=== PATIENT | male | born 1960 | race Caucasian/White ===

== ENCOUNTER 2017-05-07 16:43 | Inpatient (IN) | payer OTHER ==
[~2017-05-07] VITALS: Ht 175.3 cm; Wt 111.1 kg
[2017-05-07 16:50] VITALS: Ht 175.3 cm; Wt 111.1 kg
[2017-05-07] MEDS ORDERED: ACETAMINOPHEN A1 TAB PO (17:08)
[2017-05-07] MEDS ORDERED: MAPAP500 MG PO (17:09)
[2017-05-07] MEDS ORDERED: NEURONTIN800 MG PO (17:09)
[2017-05-07] MEDS ORDERED: KEN025C TOP (17:11)
[2017-05-07] MEDS ORDERED: ZOSC TOP (17:12)
[2017-05-07] MEDS ORDERED: XOPENEX HF0.045 MG/1 IH (17:13)
[2017-05-07] MEDS ORDERED: DULERA1 AR2 INH (17:14)
[2017-05-07] MEDS ORDERED: GOOD SENSE OMEP20 MG PO (17:14)
[2017-05-07] MEDS ORDERED: SPIRIVA18 MC1 INH (17:15)
[2017-05-07 17:50] LABS: BASOPHIL % 0.6 % (0-2); PLATELET COUNT 194 x10^3mcL (130-400)
[2017-05-07 17:59] LABS: RED CELL DISTRIBUTION WIDTH 16.1 % (11.5-14.5)
[2017-05-07 18:04] LABS: CALCIUM 8.7 mg/dL (8.5-10.1); CARBON DIOXIDE 27.6 mmol/L (21-32); CHLORIDE SERUM 105 mmol/L (98-107); CREATININE SERUM 1.1 mg/dL (0.7-1.3); GFR1 > 60 mL/min; GLUCOSE SERUM 127 mg/dL (74-106); POTASSIUM SERUM 3.7 mmol/L (3.5-5.1); SODIUM SERUM 143 mmol/L (136-145)
[2017-05-07 18:09] LABS: ALBUMIN 3.8 g/dL (3.4-5.0); ALKALINE PHOSPHATASE 135 U/L (46-116); ALT/SGPT 92 U/L (16-63); AST/SGOT 110 U/L (15-37); BILIRUBIN TOTAL 0.42 mg/dL (0.20-1.00)
[2017-05-07 18:10] LABS: AMPHETAMINE QUAL UR NONE DETECTED (NEG <=1000)
[2017-05-07 18:11] LABS: CHOLESTEROL 127 mg/dL (<200); HDL CHOLESTEROL 34 mg/dL (40-60); TOTAL PROTEIN, SERUM 8.4 g/dL (6.4-8.2)
[2017-05-07 18:24] LABS: UA SPECIFIC GRAVITY 1.015 (1.005-1.035); microscopic required? YES; urine erythrocyte NEGATIVE (NEGATIVE)
[2017-05-07 21:14] VITALS: BP 145/90
[2017-05-07 21:31] VITALS: BP 107/77
[2017-05-08 06:14] VITALS: BP 133/79
[2017-05-08 08:21] LABS: CALCIUM 8.4 mg/dL (8.5-10.1); CARBON DIOXIDE 27.8 mmol/L (21-32); CHLORIDE SERUM 105 mmol/L (98-107); CREATININE SERUM 0.9 mg/dL (0.7-1.3); GFR1 > 60 mL/min; GLUCOSE SERUM 121 mg/dL (74-106); POTASSIUM SERUM 3.7 mmol/L (3.5-5.1); SODIUM SERUM 139 mmol/L (136-145)
[2017-05-08 08:22] LABS: BASOPHIL % 0.4 % (0-2); PLATELET COUNT 188 x10^3mcL (130-400)
[2017-05-08 08:24] LABS: T4(THYROXINE) 9.3 ug/dL (4.7-13.3)
[2017-05-08 08:49] LABS: RED CELL DISTRIBUTION WIDTH 16.3 % (11.5-14.5)
[2017-05-08 10:17] VITALS: BP 129/79
[2017-05-08 11:37] LABS: ERYTHROCYTE SED RATE 14 mm/hr (0-20)
[2017-05-08 13:35] VITALS: BP 129/78
[2017-05-08 14:04] VITALS: BP 129/79
[2017-05-08 17:06] VITALS: BP 128/72
[2017-05-10 05:40] LABS: RAPID PLASMA REAGIN Non Reactive (Non Reactive)
[2017-05-10 09:10] LABS: RHEUMATOID ARTHRITIS FACTOR <10.0 IU/mL (0.0-13.9)
== END 2017-05-08 17:30 | disposition other institution (70) | DRG 682 ==
LOC: ED 16:43 → DU 18:55
PROVIDERS: Emergency Medicine; ADMIT Internal Medicine
DX: N17.9 Acute kidney failure, unspecified (principal); J18.9 Pneumonia, unspecified organism; M62.82 Rhabdomyolysis; J44.9 Chronic obstructive pulmonary disease, unspecified; K21.9 Gastro-esophageal reflux disease without esophagitis; Z88.8 Allergy status to other drugs, medicaments and biological substances; Z88.5 Allergy status to narcotic agent
CPT/HCPCS: 83880; 86431; 87804; G0480; J2270; Q0092